=== PATIENT | male | born 1980 | race African-American/Black ===

== ENCOUNTER 2021-11-27 01:09 | Emergency (ER) | payer SELFPAY ==
[~2021-11-27] VITALS: Ht 175.3 cm; Wt 114.0 kg
[2021-11-27] MEDS ORDERED: TETANUS AND DIPHTHERIA TOX/PF 0.5ML SYR (ADULT) IM ONE (01:30)
[2021-11-27 02:10] VITALS: BP 135/78
== END 2021-11-27 02:48 | disposition home or self-care (01) ==
LOC: ER 01:09
DX: S81.032A Puncture wound without foreign body, left knee, initial encounter (principal); W34.00XA Accidental discharge from unspecified firearms or gun, initial encounter; Y93.89 Activity, other specified; Y92.89 Other specified places as the place of occurrence of the external cause
CPT/HCPCS: 73590; 90471; 90714; 90715; 99283

== ENCOUNTER 2022-01-08 17:00 | Emergency (ER) | payer BC ==
[~2022-01-08] VITALS: Ht 175.3 cm; Wt 117.0 kg
[2022-01-08 17:05] VITALS: BP 126/81
[2022-01-08] MEDS ORDERED: KETOROLAC 30MG/ML VIAL IV STA (18:33)
[2022-01-08] MEDS ORDERED: SODIUM CHLORIDE 0.9% 1,000 ML IV ONE (18:45)
[2022-01-08] MEDS ORDERED: VISCOUS LIDOCAINE 2% 15 ML UDC MM ONE (18:45)
[2022-01-08] MEDS ORDERED: MAGNESIUM/ALUMINUM HYDROXIDE/SIMETHICONE 30ML UDC PO ONE (18:45)
[2022-01-08 18:49] LABS: BASOPHILS % 0.4 % (0.0-2.0); EOSINOPHILS % 1.3 % (0.0-5.0); HEMATOCRIT. 45.7 % (42.0-52.0); HEMOGLOBIN. 15.2 g/dL (14.0-18.0); LYMPHOCYTES % 17.3 % (20.0-50.0); MEAN CORPUSCULAR HEMOGLOBIN 27.4 pg (28.0-32.0); MEAN CORPUSCULAR VOLUME 82.2 fL (80.0-94.0); MONOCYTES % 5.8 % (2.0-8.0); NEUTROPHILS % 75.2 % (40.0-76.0); PLATELET 223 x1000/uL (130-400); RED BLOOD CELL COUNT 5.56 mill/uL (4.7-6.1); RED CELL DISTRIBUTION WIDTH 14.4 % (11.6-14.6)
[2022-01-08 18:55] LABS: CHLORIDE 109 mEq/L (98-107)
[2022-01-08 19:00] LABS: ETHANOL BLOOD < 10 mg/dL
[2022-01-08] MEDS ORDERED: NITROGLYCERIN 0.4MG TABLET SL SL NR (19:45)
[2022-01-08 20:52] LABS: CLARITY URINE CLEAR (CLEAR); COLOR URINE YELLOW (YELLOW); KETONES URINE NEGATIVE (NEGATIVE); LEUKOCYTE ESTERASE URINE NEGATIVE (NEGATIVE); NITRITE URINE NEGATIVE (NEGATIVE); OCCULT BLOOD URINE NEGATIVE (NEGATIVE); PH URINE 6.5 (4.5-8.0); PROTEIN URINE NEGATIVE (NEGATIVE); SPECIFIC GRAVITY URINE 1.027 (1.005-1.030)
[2022-01-08 21:05] LABS: OPIATES URINE SCREEN NEGATIVE (NEGATIVE); PHENCYCLIDINE URINE SCREEN NEGATIVE (NEGATIVE)
[2022-01-08 21:06] LABS: *AMPHETAMINES SCREEN URINE NEGATIVE (NEGATIVE); *BARBITURATES SCREEN URINE NEGATIVE (NEGATIVE); *BENZODIAZEPINES SCREEN URINE NEGATIVE (NEGATIVE); *COCAINE SCREEN URINE NEGATIVE (NEGATIVE); CANNABINOID URINE SCREEN NEGATIVE (NEGATIVE); METHADONE URINE SCREEN NEGATIVE (NEGATIVE)
[2022-01-08] MEDS ORDERED: MORPHINE SULFATE 4 MG/ML CPJ (NOT FOR IM USE) IV ONE (21:30)
[2022-01-08] MEDS ORDERED: ASPI-1497 MT (22:21)
[2022-01-08] MEDS ORDERED: NITR0.4T SL (22:21)
== END 2022-01-08 22:48 | disposition home or self-care (01) ==
LOC: ER 17:00
DX: R07.2 Precordial pain (principal)
CPT/HCPCS: 36415; 71045; 80053; 80305; 80320; 81003; 84484; 85025; 85379; 93005; 96361; 96374; 96375; 99285; J1885; J2270; J7030; G0480

== ENCOUNTER 2023-08-15 03:59 | Emergency (ER) | payer BC ==
[~2023-08-15] VITALS: Ht 175.3 cm; Wt 119.0 kg
[~2023-08-15 03:59] MED LIST: ASPI-1497 MT; NITR0.4T SL
[2023-08-15 04:04] VITALS: BP 131/90; PULSE 68; RESP 18; TEMP 97.7; O2SAT 99
[2023-08-15] MEDS ORDERED: AMOX1TAB16 MT (05:38)
[2023-08-15] MEDS ORDERED: IBUP-2030 MT (05:38)
[2023-08-15] MEDS ORDERED: AMOXICILLIN/POTASSIUM CLAVULANATE 875/125MG TAB PO ONE (05:45)
[2023-08-15] MEDS ORDERED: DEXAMETHASONE 4MG TABLET PO ONE (05:45)
[2023-08-15] MEDS ORDERED: KETOROLAC 60MG/2ML VIAL IM ONE (05:45)
[2023-08-15] MEDS ORDERED: DEXAMETHASONE 2MG TABLET PO NR (06:00)
== END 2023-08-15 06:17 | disposition home or self-care (01) ==
LOC: ER 03:59
DX: K04.7 Periapical abscess without sinus (principal)
CPT/HCPCS: 99283; 96372; J8540; J1885

== ENCOUNTER 2024-10-30 00:57 | Emergency (ER) | payer BC ==
[~2024-10-30] VITALS: Ht 175.3 cm; Wt 117.9 kg
[~2024-10-30 00:57] MED LIST changes: +AMOX1TAB16 MT; +IBUP-2030 MT
[2024-10-30 01:07] VITALS: O2SAT 100
[2024-10-30 01:55] VITALS: BP 121/76; PULSE 94; RESP 18; TEMP 98.1; O2SAT 100
== END 2024-10-30 02:18 | disposition left against medical advice (07) ==
LOC: ER 01:06
DX: R10.13 Epigastric pain (principal); R11.0 Nausea; Z53.21 Procedure and treatment not carried out due to patient leaving prior to being seen by health care provider
CPT/HCPCS: 93005